=== PATIENT | male | born 2000 | race Hispanic/Latino ===

== ENCOUNTER 2021-09-29 08:56 | Emergency (ER) | payer BC ==
[2021-09-29] MEDS ORDERED: dexAMETHasone 10 MG/ML VIAL ONE (09:41)
[2021-09-29] MEDS ORDERED: IBUPROFEN 200 MG TAB PO ONE (09:42)
[2021-09-29] MEDS ORDERED: NA CHLORIDE 0.9% 1,000 ML ONE (09:42)
[2021-09-29] MEDS ORDERED: ONDANSETRON 4 MG/2 ML VIAL ONE (09:42)
[2021-09-29 09:50] LABS: Absolute Lymphocytes (CBC) 1.6 K/uL (0.7-4.9); Hematocrit 38.8 % (39.6-49.0); Lymphocytes % 14.2 % (15.3-44.8); MCV 87.7 fL (80-100); MPV 9.4 fL (7.6-11.3); RBC Red Blood Cell Count 4.43 M/uL (4.33-5.43)
[2021-09-29] MEDS ORDERED: NA CHLORIDE 0.9% 50 ML ONE (10:23)
[2021-09-29] MEDS ORDERED: CEFTRIAXONE 1000 MG/VIAL ONE (10:23)
--- NOTE | 2021-09-29 10:36 | ER ---
Nurse's Notes [facility] Name: Kane Inman Age: 21 yrs Sex: Male : 2000 Arrival Date: 09/29/2021 Time: 08:58 Bed 10 Private MD: Diagnosis: Acute tonsillitis, unspecified Presentation: 09/29 09:07 Chief complaint:. vg1 09:08 Chief complaint: Patient states: was seen on the 09/27 for sore throat x1 week. vg1 Coronavirus screen: Client denies travel out of the [place] in the last 14 days. Coronavirus screen: Vaccine status: Patient reports being unvaccinated. Ebola Screen: Patient denies exposure to infectious person. Patient denies travel to an Ebola-affected area in the 21 days before illness onset. Initial Sepsis Screen: Does the patient meet any 2 criteria? HR > 90 bpm. Does the patient have a suspected source of infection? No. Patient's initial sepsis screen is negative. Risk Assessment: Do you want to hurt yourself or someone else? Patient reports no desire to harm self or others. Onset of symptoms was September 22, 2021. 09:08 Method Of Arrival: Ambulatory vg1 09:08 Acuity: KELLEY 3 vg1 Triage Assessment: 09:11 General: Appears in no apparent distress. uncomfortable, Behavior is calm, cooperative. vg1 Pain: Complains of pain in location. EENT: Throat is reddened has patchy exudate has enlarged tonsils. Historical: - Allergies: 09:11 No Known Allergies; vg1 - Home Meds: 09:11 None [Active]; vg1 - PMHx: 09:11 None; vg1 - PSHx: 09:11 None; vg1 - Immunization history:: Client reports having NOT received the Covid vaccine. - Social history:: Smoking status: Patient denies any tobacco usage or history of. Screenin:40 Abuse screen: Denies threats or abuse. Denies injuries from another. Nutritional ss screening: No deficits noted. Tuberculosis screening: Never had TB. Fall Risk None identified. Assessment: 10:40 Reassessment: Patient appears in no apparent distress at this time. Awaiting for ss Rocephin infusion to complete. Vital Signs: 09:08 BP 101 / 65; Pulse 102; Resp 18; Temp 103.1(O); Pulse Ox 100% on R/A; Weight 58.97 kg; vg1 Height 5 ft. 8 in. (172.72 cm); Pain 10/10; 10:30 Temp 100.2(TE); ss 09:08 Body Mass Index 19.77 (58.97 kg, 172.72 cm) vg1 ED Course: 08:58 Patient arrived in ED. mr 08:58 [facility] jh7 08:58 Demetrius Nye DO is Attending Physician. jh7 09:11 Triage completed. vg1 09:11 Arm band placed on. vg1 09:13 Strep swab sent to lab. vg1 09:21 Strep Sent. tp1 09:41 Inserted saline lock: 20 gauge in right antecubital area, using aseptic technique. tp1 Blood collected. 09:41 Initial lab(s) drawn, by me, sent to lab. tp1 09:57 called and left message with Dr. Navarro's staff to call Halima Ramsay in the ED eb regarding her patient/ Dr. Navarro is currently in a procedure and will have to call us back. 10:[address] Navarro with Halima Ramsay. eb 10:14 Radha Elliott, CHRIS is Primary Nurse. ss 10:36 Donna Navarro MD is Referral Physician. 7 10:40 Patient has correct armband on for positive identification. Bed in low position. ss 10:40 No provider procedures requiring assistance completed. ss 11:03 IV discontinued, intact, bleeding controlled, No redness/swelling at site. Pressure ss dressing applied. Administered Medications: 09:48 Drug: Motrin (ibuprofen) 600 mg Route: PO; tp1 09:49 Drug: NS 0.9% 1000 ml Route: IV; Rate: 1 bolus; Site: right antecubital; tp1 09:51 Drug: Zofran (Ondansetron) 4 mg Route: IVP; Site: right antecubital; tp1 09:53 Drug: Decadron - Dexamethasone 10 mg Route: IVP; Site: right antecubital; tp1 10:22 Drug: Rocephin (cefTRIAXone) 1 grams Route: IV; Rate: 1 calculated rate; Site: right ss antecubital; 11:03 Follow up: IV Status: Completed infusion Medication: 10:40 VIS not applicable for this client. Outcome: 10:36 Discharge ordered by MD. isidro 11:03 Discharged to home ambulatory. 11:03 Condition: good 11:03 Discharge instructions given to patient, family, Instructed on discharge instructions, follow up and referral plans. medication usage, Demonstrated understanding of instructions, follow-up care, medications, Prescriptions given X 1. 11:06 Patient left the ED. Signatures: Susy Womack Shelby, RN RN Bella Conrad Victoria, RN RN vg1 Nicole Meneses tp1 Halima Anders FNP [employer] 7
--- NOTE | 2021-09-29 10:37 | EDPHYS ---
Physician Documentation [facility] Name: Kane Inman Age: 21 yrs Sex: Male : 2000 Arrival Date: 09/29/2021 Time: 08:58 Bed 10 Private MD: ED Physician Demetrius Nye HPI: 09/29 09:15 This 21 yrs old Male presents to ER via Ambulatory with complaints of Sore jh7 Throat, Fever. 09:15 Onset: The symptoms/episode began/occurred 1 week(s) ago. Patient presents for severe jh7 sore throat and fever for 1 week. Mom reports that the patient was seen once here 2 days ago and twice at [place] within this week. States that he has had a CT of his neck, COVID tested, strep, and mono which were all negative. States that the patient has an appointment with ENT tomorrow at 3:[address] Navarro, but that he is in pain. States that he has not had any antibiotics yet.. Historical: - Allergies: 09:11 No Known Allergies; vg1 - Home Meds: 09:11 None [Active]; vg1 - PMHx: 09:11 None; vg1 - PSHx: 09:11 None; vg1 - Immunization history:: Client reports having NOT received the Covid vaccine. - Social history:: Smoking status: Patient denies any tobacco usage or history of. ROS: 09:15 Neck: Negative for injury, pain, and swelling, Cardiovascular: Negative for chest pain, jh7 palpitations, and edema, Respiratory: Negative for shortness of breath, cough, wheezing, and pleuritic chest pain, Abdomen/GI: Negative for abdominal pain, nausea, vomiting, diarrhea, and constipation, Back: Negative for injury and pain, Skin: Negative for injury, rash, and discoloration, Neuro: Negative for headache, weakness, numbness, tingling, and seizure. 09:15 Constitutional: Positive for fever. 09:15 Constitutional: Positive for chills, poor PO intake. 09:15 ENT: Positive for sore throat, Negative for 09:15 ENT: Negative for sinus congestion. 09:15 All other systems are negative. Exam: 09:15 Neck: Trachea midline, no thyromegaly or masses palpated, and no cervical jh7 lymphadenopathy. Supple, full range of motion without nuchal rigidity, or vertebral point tenderness. No Meningismus. Cardiovascular: Regular rate and rhythm with a normal S1 and S2. No gallops, murmurs, or rubs. Normal PMI, no JVD. No pulse deficits. Respiratory: Lungs have equal breath sounds bilaterally, clear to auscultation and percussion. No rales, rhonchi or wheezes noted. No increased work of breathing, no retractions or nasal flaring. Abdomen/GI: Soft, non-tender, with normal bowel sounds. No distension or tympany. No guarding or rebound. No evidence of tenderness throughout. Back: No spinal tenderness. No costovertebral tenderness. Full range of motion. Skin: Warm, dry with normal turgor. Normal color with no rashes, no lesions, and no evidence of cellulitis. Neuro: Awake and alert, GCS 15, oriented to person, place, time, and situation. Normal gait. 09:15 Constitutional: The patient appears in obvious pain, uncomfortable. 09:15 ENT: Posterior pharynx: Tonsils: bilaterally enlarged, with erythema, with exudate. Vital Signs: 09:08 BP 101 / 65; Pulse 102; Resp 18; Temp 103.1(O); Pulse Ox 100% on R/A; Weight 58.97 kg; vg1 Height 5 ft. 8 in. (172.72 cm); Pain 10/10; 10:30 Temp 100.2(TE); ss 09:08 Body Mass Index 19.77 (58.97 kg, 172.72 cm) vg1 MDM: 09:23 Patient medically screened. [facility] 10:30 Differential diagnosis: pharyngitis, tonsillitis. Data reviewed: vital signs, nurses [facility] notes, lab test result(s). Data interpreted: Pulse oximetry: is 100 %. Interpretation: normal. Counseling: I had a detailed discussion with the patient and/or guardian regarding: the historical points, exam findings, and any diagnostic results supporting the discharge/admit diagnosis, the need for outpatient follow up, an ENT specialist, to return to the emergency department if symptoms worsen or persist or if there are any questions or concerns that arise at home. ED course: Spoke with Dr. Navarro regarding patient status. She advised to give him IV steroids and antibiotics and discharge him on Augmentin. Stated that he should follow-up with her nurse practitioner tomorrow at 3:20 PM.. 09/29 09:13 Order name: Strep; Complete Time: 09:52 [facility] 09/29 09:13 Order name: [place] Screen Profile; Complete Time: 10:36 [facility] 09/29 09:13 Order name: CBC with Diff; Complete Time: 10:02 [facility] 09/29 09:13 Order name: CMP; Complete Time: 15:38 [facility] 09/29 09:39 Order name: Throat Culture EDMS Administered Medications: 09:48 Drug: Motrin (ibuprofen) 600 mg Route: PO; tp1 09:49 Drug: NS 0.9% 1000 ml Route: IV; Rate: 1 bolus; Site: right antecubital; tp1 09:51 Drug: Zofran (Ondansetron) 4 mg Route: IVP; Site: right antecubital; tp1 09:53 Drug: Decadron - Dexamethasone 10 mg Route: IVP; Site: right antecubital; tp1 10:22 Drug: Rocephin (cefTRIAXone) 1 grams Route: IV; Rate: 1 calculated rate; Site: right ss antecubital; 11:03 Follow up: IV Status: Completed infusion ss Disposition: 21:52 Co-signature as Attending Physician, Demetrius Nye DO I was immediately available on-site ms3 in the Emergency Department for consultation in the care of the patient. . Disposition Summary: 09/29/21 10:36 Discharge Ordered Location: Home [facility] Problem: new [facility] Symptoms: are unchanged [facility] Condition: Stable [facility] Diagnosis - Acute tonsillitis, unspecified [facility] Followup: [facility] - With: Donna Navarro MD - When: Tomorrow - Reason: Recheck today's complaints Discharge Instructions: - Discharge Summary Sheet [facility] - Tonsillitis [facility] - Adenoidectomy, Adult [facility] Forms: - Medication Reconciliation Form [facility] - Thank You Letter [facility] - Antibiotic Education [facility] Prescriptions: - Augmentin 875-125 mg Oral Tablet - take 1 tablet by ORAL route every 12 hours for 10 days; 20 tablet; Refills: 0, jh7 Product Selection Permitted Signatures: Dispatcher [employer] Radha Pisano RN RN ss Garcia, Victoria, RN RN vg1 Demetrius Nye DO DO ms3 Nicole Meneses tp1 Halima Anders, DIAPER FOLDER DIAPER FOLDER jh7
[2021-09-29 11:00] LABS: Albumin 3.1 g/dL (3.4-5.0); Bilirubin Total 0.7 mg/dL (0.2-1.0); Protein, Total 7.5 g/dL (6.4-8.2)
[2021-09-29 11:13] VITALS: BP 101/65; O2SAT 100
[2021-09-29 11:15] VITALS: TEMP 100.2
== END 2021-09-29 11:06 | disposition home or self-care (01) ==
LOC: ER 08:56
DX: J03.90 Acute tonsillitis, unspecified (principal); Z20.822 Contact with and (suspected) exposure to COVID-19
CPT/HCPCS: 96365; 87070; 85025; 36415; 86308; 87081; 80053; 96375; 99284; J1100; J7030; J2405